=== PATIENT | male | born 1995 | race Caucasian/White ===

== ENCOUNTER 2020-02-15 09:13 | Emergency (ER) | payer BC, OTHER ==
[~2020-02-15] VITALS: Ht 170.2 cm; Wt 104.3 kg
--- NOTE | 2020-02-15 09:14 | NUR ---
Pt states he has an insect bite just above left knee, some redness and swelling noted. Pt has full ROM and has about 2-3/10 pain and associated stiffness. Pt denies CP, SOB, dizziness, n/v, no other complaints, no distress noted.
--- NOTE | 2020-02-15 09:30 | NUR ---
Gave pt RX and d/c instructions, pt verbalized understanding.
== END 2020-02-15 09:31 | disposition home or self-care (01) ==
LOC: ER 09:13
DX: S80.262A Insect bite (nonvenomous), left knee, initial encounter (principal); L03.116 Cellulitis of left lower limb; W57.XXXA Bitten or stung by nonvenomous insect and other nonvenomous arthropods, initial encounter; Y92.89 Other specified places as the place of occurrence of the external cause; Y99.8 Other external cause status
CPT/HCPCS: A4663

== ENCOUNTER 2021-10-05 16:29 | Emergency (ER) | payer BC, OTHER ==
[~2021-10-05] VITALS: Ht 170.2 cm; Wt 111.1 kg
[2021-10-05] MEDS ORDERED: NEOMY/BACITRA/POLYMYXIN B OINT UD PACKET TP ONE ×2 (16:45→17:09)
[2021-10-05] MEDS ORDERED: LIDOCAINE 1%-EPI 1:100,000 20 ML VIAL IJ ONE (16:45)
[2021-10-05] MEDS ORDERED: LIDOCAINE 1%-EPI 1:100,000 20 ML VIAL ONE (16:58)
[2021-10-05] MEDS ORDERED: CEPH500C2 PO (17:33)
[2021-10-05 18:26] VITALS: BP 149/90
--- NOTE | 2021-10-05 18:26 | NUR ---
Patient discharged to home in stable condition. Written and verbal after care instructions given. Patient verbalizes understanding of instructions. Stressed follow up or return to ER for worsening s/s.
== END 2021-10-05 18:26 | disposition home or self-care (01) ==
LOC: ER 16:31
DX: S71.121A Laceration with foreign body, right thigh, initial encounter (principal); W25.XXXA Contact with sharp glass, initial encounter; Y93.89 Activity, other specified; Y92.89 Other specified places as the place of occurrence of the external cause
CPT/HCPCS: 12001; 73564; 99283; J3490; A4217; A4663

== ENCOUNTER 2021-10-15 11:54 | Emergency (ER) | payer SELFPAY ==
[~2021-10-15] VITALS: Ht 170.2 cm; Wt 111.1 kg
[~2021-10-15 11:54] MED LIST: CEPH500C2 PO
--- NOTE | 2021-10-15 12:12 | NUR ---
Sutures removed by .
[2021-10-15 12:19] VITALS: BP 110/60
== END 2021-10-15 12:20 | disposition home or self-care (01) ==
LOC: ER 11:54
DX: S81.021D Laceration with foreign body, right knee, subsequent encounter (principal); W25.XXXD Contact with sharp glass, subsequent encounter; W45.8XXD Other foreign body or object entering through skin, subsequent encounter
CPT/HCPCS: A4663